=== PATIENT | female | born 1990 | race Caucasian/White ===

== ENCOUNTER 2020-02-25 09:48 | Emergency (ER) | payer OTHER ==
[2020-02-25 09:54] VITALS: RESP 18
[2020-02-25 10:09] LABS: Appearance,Urine Clear (Clear); Bilirubin,Urine Negative (Negative); Blood,Urine Negative (Negative); Color,Urine Light Yellow; Glucose,Urine (UA) Negative (Negative); Ketones,Urine Negative (Negative); Leukocyte Esterase,Urine Negative (Negative); Nitrite,Urine Negative (Negative); Protein,Urine Negative (Negative); Urobilinogen,Urine <2.0 mg/dL (<2.0)
[2020-02-25] MEDS ORDERED: SODIUM CHLORIDE 0.9% 1,000 ML IV ONE (10:23)
[2020-02-25] MEDS ORDERED: SODIUM CHLORIDE 0.9% 1,000 ML IV SCH (10:30)
[2020-02-25 10:48] LABS: Basophils % (A) 1 %; Eosinophils # (A) 0.1 k/uL (0-0.7); Eosinophils % (A) 2 %; HCT 38.1 % (34.0-46.0); HGB 12.6 gm/dL (11.4-16.0); Lymphocytes # (A) 1.6 k/uL (1.0-4.8); Lymphocytes % (A) 24 %; MCH 28.1 pg (25.0-35.0); MCV 85.2 fL (80.0-100.0); Mean Platelet Volume 6.6; Monocytes # (A) 0.3 k/uL (0-1.0); Monocytes % (A) 4 %; Neutrophils # (A) 4.4 k/uL (1.3-7.7); Neutrophils % (A) 67 %; Platelet Count 389 k/uL (150-450); RBC 4.47 m/uL (3.80-5.40); RDW 11.8 % (11.5-15.5); WBC 6.5 k/uL (3.8-10.6)
--- NOTE | 2020-02-25 10:51 | ED ---
Female Urogenital HPI - General Chief complaint: Urogenital Stated complaint: trouble urinating Time Seen by Provider: 02/25/20 09:56 Source: patient, RN notes reviewed, old records reviewed Mode of arrival: ambulatory Limitations: no limitations - History of Present Illness Initial comments: Patient is a pleasant 30-year-old female. She presents emergency Department today with complaints of urinary retention for the past few weeks since treatment for UTI. Patient states that she was treated for urinary tract infection after complaining of dysuria and burning sensation with urinating earlier this month. She was treated with initially Bactrim starting on February 13 at urgent care. She called and stated that that was not working 3 days later, so was then switched to Macrobid. She states she finished the Macrobid entire prescription she denies any further dysuria. She also states that during that time she's taking antibiotic she was called and told her that her urine culture was negative. She denies any back pain. She states she's also noticed a small lesion over her labia and was treated for new diagnosis of herpes infection by the urgent care. She was tested for all other STDs and this was negative. She states that over the past week whenever she is trying to urinate she feels as if she is sits on the toilet for 30 minutes and is unable to relax her bladder to completely urinate. She states that she has to go into the shower or put warm water over her labia to help induce the ability to urinate. Sometimes she has complaints of abnormal sensation over L lower abdomen when she tries to urinate. Patient reports that she held her bladder prolonged period of time before she arrived here is that she is able to provide a urine sample right away. She denies any fall. She denies any back pain. She states she's had normal stools. Last Menstrual Period: 01/29/20 - Related Data Home Medications Medication Instructions Recorded Confirmed [place] Fe 11/27 1 tab PO DAILY 02/25/20 02/25/20 valACYclovir HCL [Valtrex] 1,000 mg PO Q12H 02/25/20 02/25/20 Allergies Allergy/AdvReac Type Severity Reaction Status Date / Time No Known Allergies Allergy Verified 02/25/20 10:45 Review of Systems ROS Statement: Those systems with pertinent positive or pertinent negative responses have been documented in the HPI. ROS Other: All systems not noted in ROS Statement are negative. Past Medical History Additional Past Medical History / Comment(s): kidney stone History of Any Multi-Drug Resistant Organisms: None Reported Past Surgical History: Section Additional Past Surgical History / Comment(s): lithrotriposy Past Psychological History: No Psychological Hx Reported Smoking Status: Never smoker Past Alcohol Use History: None Reported Past Drug Use History: None Reported General Exam - General Exam Comments Initial Comments: 30 year old female, no distress. Limitations: no limitations General appearance: alert, in no apparent distress Head exam: Present: atraumatic, normocephalic, normal inspection Eye exam: Present: normal appearance, PERRL, EOMI. Absent: scleral icterus, conjunctival injection, periorbital swelling ENT exam: Present: normal exam, mucous membranes moist Neck exam: Present: normal inspection. Absent: tenderness, meningismus, lymphadenopathy Respiratory exam: Present: normal lung sounds bilaterally. Absent: respiratory distress, wheezes, rales, rhonchi, stridor Cardiovascular Exam: Present: regular rate, normal rhythm, normal heart sounds. Absent: systolic murmur, diastolic murmur, rubs, gallop, clicks GI/Abdominal exam: Present: soft, normal bowel sounds. Absent: distended, tenderness, guarding, rebound, rigid External exam: Present: normal external exam, lesions (healing lesion over R labia, normal sensation to light touch over labia, thigh and rectum. ) Extremities exam: Present: normal inspection, full ROM, normal capillary refill. Absent: tenderness, pedal edema, joint swelling, calf tenderness Back exam: Present: normal inspection, full ROM Neurological exam: Present: alert, oriented X3, CN II-XII intact Psychiatric exam: Present: normal affect, normal mood Course Vital Signs 02/25/20 09:51 Temperature 98.2 F Pulse Rate 80 Respiratory 18 Rate Blood Pressure 128/77 O2 Sat by Pulse 100 Oximetry - Reevaluation(s) Reevaluation #1: 02/25/20 10:59 Patient urinated upon arrival to the emergency department. This is Patient arrived into the ER patient's was feeling better after she was able to urinate. Stat bladder scan after urinated was completed and patient has 270cc urine in bladder. She denies feeling to urinate or pain or distenstion at this time. Medical Decision Making - Medical Decision Making Patient is a 30-year-old female presents emergency Department today with complaints of intermittent urinary retention and stated that she was only able to urinate after putting warm water on her labia are doing tricks to help encourage her to urinate. She was treated for UTI takes own physician X also treated for herpes infection. She is currently on Valtrex and her lesions are feeling. She has no further dysuria. She is concerned that she has to use tricks and use warm water over labia to help encourage to urinate that she came in for further evaluation. She has normal rectal tone normal sensation over her genitalia. Patient has full strength and range of motion lower extremities. No fall or back pain this time. Patient's blood work was reviewed and unremarkable. We did do a bladder scan which showed 200 mL of urine and bladder on intial presentation after she urinated in ED. After receiving fluids Patient was able to urinate on her own and she states she is urinating well. She complains of no abdominal pain or distention. Discussed that Patient likely is still recovering from cystitis and the nerve of the bladder still irritated. I discussed finishing her Valtrex and encouraging fluid intake. Patient will be discharged at this time advised follow up with urology. I discussed that no need to insert a long-term Saavedra catheter because able to urinate at this time. All questions answered and return parameters discussed. - Lab Data Result diagrams: 02/25/20 10:35 02/25/20 10:35 Lab Results 02/25/20 02/25/20 02/25/20 Range/Units 10:00 10:00 10:35 WBC 6.5 (3.8-10.6) k/uL RBC 4.47 (3.80-5.40) m/uL Hgb 12.6 (11.4-16.0) gm/dL Hct 38.1 (34.0-46.0) % MCV 85.2 (80.0-100.0) fL MCH 28.1 (25.0-35.0) pg MCHC 33.0 (31.0-37.0) g/dL RDW 11.8 (11.5-15.5) % Plt Count 389 (150-450) k/uL Neutrophils % 67 % Lymphocytes % 24 % Monocytes % 4 % Eosinophils % 2 % Basophils % 1 % Neutrophils # 4.4 (1.3-7.7) k/uL Lymphocytes # 1.6 (1.0-4.8) k/uL Monocytes # 0.3 (0-1.0) k/uL Eosinophils # 0.1 (0-0.7) k/uL Basophils # 0.0 (0-0.2) k/uL PT (9.0-12.0) sec INR (<1.2) APTT (22.0-30.0) sec Sodium (137-145) mmol/L Potassium (3.5-5.1) mmol/L Chloride (98-107) mmol/L Carbon Dioxide (22-30) mmol/L Anion Gap mmol/L BUN (7-17) mg/dL Creatinine (0.52-1.04) mg/dL Est GFR (CKD-EPI)AfAm (>60 ml/min/1.73 sqM) Est GFR (CKD-EPI)NonAf (>60 ml/min/1.73 sqM) Glucose (74-99) mg/dL Calcium (8.4-10.2) mg/dL Total Bilirubin (0.2-1.3) mg/dL AST (14-36) U/L ALT (4-34) U/L Alkaline Phosphatase (38-126) U/L Total Protein (6.3-8.2) g/dL Albumin (3.5-5.0) g/dL Urine Color Light Yellow Urine Appearance Clear (Clear) Urine pH 7.0 (5.0-8.0) Ur Specific [place] 1.010 (1.001-1.035) Urine Protein Negative (Negative) Urine Glucose (UA) Negative (Negative) Urine Ketones Negative (Negative) Urine Blood Negative (Negative) Urine Nitrite Negative (Negative) Urine Bilirubin Negative (Negative) Urine Urobilinogen <2.0 (<2.0) mg/dL Ur Leukocyte Esterase Negative (Negative) Urine HCG, Qual Not Detected (Not Detectd) 02/25/20 02/25/20 Range/Units 10:35 10:35 WBC (3.8-10.6) k/uL RBC (3.80-5.40) m/uL Hgb (11.4-16.0) gm/dL Hct (34.0-46.0) % MCV (80.0-100.0) fL MCH (25.0-35.0) pg MCHC (31.0-37.0) g/dL RDW (11.5-15.5) % Plt Count (150-450) k/uL Neutrophils % % Lymphocytes % % Monocytes % % Eosinophils % % Basophils % % Neutrophils # (1.3-7.7) k/uL Lymphocytes # (1.0-4.8) k/uL Monocytes # (0-1.0) k/uL Eosinophils # (0-0.7) k/uL Basophils # (0-0.2) k/uL PT 10.1 (9.0-12.0) sec INR 1.0 (<1.2) APTT 22.0 (22.0-30.0) sec Sodium 138 (137-145) mmol/L Potassium 4.3 (3.5-5.1) mmol/L Chloride 106 (98-107) mmol/L Carbon Dioxide 24 (22-30) mmol/L Anion Gap 8 mmol/L BUN 12 (7-17) mg/dL Creatinine 0.79 (0.52-1.04) mg/dL Est GFR (CKD-EPI)AfAm >90 (>60 ml/min/1.73 sqM) Est GFR (CKD-EPI)NonAf >90 (>60 ml/min/1.73 sqM) Glucose 93 (74-99) mg/dL Calcium 9.0 (8.4-10.2) mg/dL Total Bilirubin 0.6 (0.2-1.3) mg/dL AST 23 (14-36) U/L ALT 18 (4-34) U/L Alkaline Phosphatase 37 L (38-126) U/L Total Protein 7.2 (6.3-8.2) g/dL Albumin 4.0 (3.5-5.0) g/dL Urine Color Urine Appearance (Clear) Urine pH (5.0-8.0) Ur Specific [place] (1.001-1.035) Urine Protein (Negative) Urine Glucose (UA) (Negative) Urine Ketones (Negative) Urine Blood (Negative) Urine Nitrite (Negative) Urine Bilirubin (Negative) Urine Urobilinogen (<2.0) mg/dL Ur Leukocyte Esterase (Negative) Urine HCG, Qual (Not Detectd) - Radiology Data Radiology results: report reviewed Heterogeneous uterus may heart present and no myosis. The exam is otherwise unremarkable. Disposition Clinical Impression: Urinary bladder disorder Disposition: HOME SELF-CARE Condition: Good Instructions (If sedation given, give patient instructions): Acute Urinary Retention in Women (ED) Additional Instructions: Encourage and increase fluid intake. Continue to take the prescription of Valtrex. Follow-up with around she continued symptoms occur. If there is any severe bladder distention or persistent urinary retention return to the ED for possible saavedra catheter placement. Is patient prescribed a controlled substance at d/c from ED?: No Referrals: None,Stated [Primary Care Provider] - 1-2 days Clifford Hernandez MD [STAFF PHYSICIAN] - 1-2 days Time of Disposition: 12:06
[2020-02-25 10:57] LABS: ALT 18 U/L (4-34); AST 23 U/L (14-36); African American GFR (CKD) >90 (>60 ml/min/1.73 sqM); Alkaline Phosphatase 37 U/L (38-126); Anion Gap 8 mmol/L; Blood Urea Nitrogen 12 mg/dL (7-17); Carbon Dioxide 24 mmol/L (22-30); Chloride 106 mmol/L (98-107); Glucose 93 mg/dL (74-99); Non-African American GFR(CKD) >90 (>60 ml/min/1.73 sqM); Potassium 4.3 mmol/L (3.5-5.1); Sodium 138 mmol/L (137-145); Total Bilirubin 0.6 mg/dL (0.2-1.3); Total Protein 7.2 g/dL (6.3-8.2)
[2020-02-25 11:04] LABS: Prothrombin Time 10.1 sec (9.0-12.0)
--- NOTE | 2020-02-25 11:34 | US ---
EXAMINATION TYPE: US pelvis complete transvag DATE OF EXAM: 02/25/2020 COMPARISON: NONE CLINICAL HISTORY: L ovarian pain, urinary retention. Urinary retention, difficulty urinating, left pe lvic pain while trying to urinate, genital herpes TECHNIQUE: Transvaginal (TV) and Transabdominal (TA) . Transabdominal sonographic images of the pel vis were acquired. Transvaginal sonographic images were medically necessary to better assess the fol lowing anatomy: ovaries Date of LMP: january EXAM MEASUREMENTS: Uterus: 9.3 x 4.6 x 4.5 cm Endometrial Stripe: 0.6 cm Right Ovary: 3.6 x 1.6 x 1.7 cm Left Ovary: unable to visualize Technical limitations, bladder not fully distended, patient unable to tolerate TV - patient very un comfortable during entire exam 1. Uterus: Anteverted heterogeneous 2. Endometrium: appears wnl 3. Right Ovary: follicles noted - unable to obtain Doppler due to location, posterior to uterus 4. Left Ovary: Obscured by overlying bowel gas 5. Bilateral Adnexa: appears wnl 6. Posterior cul-de-sac: wnl IMPRESSION: HETEROGENOUS UTERUS MAY REPRESENT ADENOMYOSIS. THE EXAMINATION IS OTHERWISE UNREMARKABLE.
[2020-02-25 12:05] VITALS: BP 117/70; PULSE 64; TEMP 98.4
== END 2020-02-25 12:16 | disposition home or self-care (01) ==
LOC: EC 09:48
DX: N32.9 Bladder disorder, unspecified (principal); Z87.442 Personal history of urinary calculi; Z98.890 Other specified postprocedural states; Z79.3 Long term (current) use of hormonal contraceptives
CPT/HCPCS: 36415; 51798; 76830; 76856; 80053; 81003; 81025; 85025; 85610; 85730; 96360; 96361; 99284